=== PATIENT | female | born 2000 | race African-American/Black ===

== ENCOUNTER 2020-09-26 05:52 | Inpatient (IN) ==
[2020-09-26] MEDS ORDERED: SODIUM CHLORIDE 0.9% 500 ML IV STA (06:13)
[2020-09-26] MEDS ORDERED: ONDANSETRON INJ 2 MG/ML 2 ML VIAL IV STA (06:13)
[2020-09-26] MEDS ORDERED: KETOROLAC 30 MG/ML VIAL IV ONE (06:46)
[2020-09-26 06:54] LABS: Basophils # (auto) 0.03 K/uL (0-0.2); Basophils % (auto) 0.6 %; Eosinophils # (auto) 0.21 K/uL (0-0.5); Eosinophils % (auto) 3.9 %; Hematocrit (blood only) 36.2 % (37-47); Lymphocytes # (auto) 2.45 K/uL (1.2-3.4); Lymphocytes % (auto) 45.5 %; Mean Corpuscular Hemoglobin 26.5 pg (25-34); Mean Corpuscular Hgb Conc 33.1 g/dL (32-36); Mean Corpuscular Volume 79.9 fL (80-100); Mean Platelet Volume 8.8 fL (7.4-10.4); Monocytes % (auto) 11.2 %; Neutrophils # (auto) 2.09 K/uL (1.4-6.5); Neutrophils % (auto) 38.8 %; Platelet Count 334 K/uL (130-400); RDW Coefficient of Variation 14.7 % (11.5-14.5); RDW Standard Deviation 42.6 fL (36.4-46.3); Red Blood Count 4.53 M/uL (4.2-5.4); White Blood Count 5.38 K/uL (4.8-10.8)
[2020-09-26 07:13] LABS: Pregnancy Test, Serum Negative (Negative)
[2020-09-26 07:14] LABS: Albumin Level 3.8 gm/dl (3.4-5.0); BUN Creatinine Ratio 9.5 (10-20); Calcium 9.1 mg/dl (8.5-10.1); Creatinine Clr Calc Pharmacy 112.7 ml/min; Est GFR (African American) 104.5; Est GFR (Non-African American) 90.2
[2020-09-26 07:17] LABS: Bilirubin,Total 0.7 mg/dl (0.2-1); Globulin 3.9 gm/dl (2.5-4.0); Total Protein 7.7 gm/dl (6.4-8.2)
[2020-09-26] MEDS ORDERED: fentaNYL citrate 100 MCG/2 ML VIAL IV PRN (07:23)
[2020-09-26 07:25] LABS: Appearance Urine Cloudy (Clear); Bacteria Urine Automated Negative (Negative); Bilirubin Urine Negative (Negative); Blood Urine 3+ (Negative); Color Urine Dark Yellow; Epithelial Cell Urine Auto >30 /lpf (0-5); Glucose Urine UA Negative (Negative); Ketones Urine Negative (Negative); Leukocyte Esterase Urine Trace (Negative); Nitrite Urine Negative (Negative); Protein Urine 1+ (Negative); RBC Urine Automated >30 /hpf (0-4); Specific Gravity Urine 1.031 (1.000-1.030); Urobilinogen Urine Negative (Negative)
[2020-09-26] MEDS ORDERED: IOVERSOL 100ml IV ONE (08:03)
--- NOTE | 2020-09-26 08:42 | Ultrasound Report ---
BILIARY ULTRASOUND CLINICAL HISTORY: RUQ abdominal pain COMPARISON STUDY: No previous studies for comparison. FINDINGS: The gallbladder is distended. The gallbladder contains sludge and tiny echogenic foci likely represen ting tiny calculi. There is no gallbladder wall thickening. There is no ductal dilatation. The common bile duct measures 5 mm. The liver appears sonographically unremarkable. The pancreas is largely obscured by bowel gas shadowing. The head and proximal body the pancreas appe ar normal. There is no right-sided hydronephrosis. IMPRESSION: 1. Distended gallbladder containing sludge and tiny calculi. No gallbladder wall thickening. No peric holecystic fluid. 2. If there is clinical concern over the presence of acute cholecystitis, a nuclear medicine hepatic biliary study could be obtained in follow-up. ACT 112: Negative or not required by law. Electronically signed by: Antony Hall M.D. 09/26/2020 8:40 AM
--- NOTE | 2020-09-26 08:50 | CT Scan Report ---
CT OF THE ABDOMEN AND PELVIS WITH CONTRAST CLINICAL HISTORY: RLQ abd pain COMPARISON STUDY: Right upper quadrant ultrasound performed earlier today. TECHNIQUE: Following IV administration of 94 mL of Optiray-320, axial images of the abdomen and pelvi s were obtained from the lung bases to the proximal femurs. Images were reviewed in the axial, sagitt al, and coronal planes. IV contrast was administered without complication. Automated exposure contro l was utilized for the study. A dose lowering technique was utilized adhering to the principles of A HOLLIS. CT DOSE: 467.78 mGy.cm FINDINGS: Lung bases are unremarkable. No pneumatosis, free air or portal venous gas is present. Ther e is periportal edema. There is no biliary or pancreatic ductal dilatation. The spleen, adrenal gland s, kidneys and pancreas are normal. There is no peripancreatic infiltration. There is trace perichole cystic fluid. The gallbladder is mildly distended. The gallbladder fundus distorts the anterior abdom inal wall. There is a peripherally calcified 9 mm focus within the claude hepatis shown on axial image 98. This could reflect a stone within the cystic duct. There is no pericholecystic infiltration. The appendix is normal. The caliber and wall thickness of small and large bowel are normal. There is a m oderate amount of stool. Major vasculature is patent. The ovaries are not enlarged. There is no ascit es. There is no abscess. No urinary calculi identified although sensitivity is diminished given excre harish contrast within the collecting systems. IMPRESSION: 1. Mild gallbladder distention. Gallbladder fundus distorts the anterior abdominal wall. Trace perich olecystic fluid. Possible 9 mm stone within the cystic duct. These findings raise the possibility of acute cholecystitis. A nuclear medicine hepatobiliary scan could be obtained. 2. Normal appendix. No bowel obstruction. 3. Moderate amount of stool. 4. Periportal edema which may be related to IV hydration. ACT 112: Negative or not required by law. Electronically signed by: Ryan Nickerson M.D. 09/26/2020 8:49 AM
--- NOTE | 2020-09-26 09:08 | Emergency Department Note ---
History of Present Illness General Chief Complaint: Abdominal Pain Stated Complaint: SEVERE ABDOMINAL PAIN Time Seen by Provider: 09/26/20 06:40 Source: patient Mode of arrival: ambulatory Limitations: no limitations History of Present Illness Provider Complaint: abdominal pain Maximum Pain Intensity: 10 This is a 20-year-old female who presents to the ED with a chief complaint of epigastric abdominal pain and right upper quadrant and right-sided abdominal pain. The patient states that her symptoms started around 3 AM this morning. She reports associated nausea. Denies vomiting or diarrhea. She states that she had pizza yesterday evening. She has had some similar episodes off and on in the past. She states that she was recently at [facility] and they told her she had a stomach tear. She was there for the same reason. She has no other complaints at this time. Denies possibility of . Home Medications Home Medications Medication Instructions Recorded Confirmed Type Oral Contraceptive 1 tab PO DAILY 09/26/20 09/26/20 History Allergies Allergy/AdvReac Type Severity Reaction Status Date / Time No Known Allergies Allergy Unverified 09/26/20 06:21 Past Med/Surg History Social History Smoking Status: Never smoker Preferred Language: Kosovan Feels Safe at Home: Yes Review of Systems A total of 10 systems reviewed and were otherwise negative Physical Exam Vital Signs: Vital Signs - 24 hr 09/26/20 05:56 09/26/20 07:35 Temperature 37.0 C Temperature Source Oral Pulse Rate 100 H Pulse Rate [Finger ] 77 Respiratory Rate 20 18 Respiratory Effort / Characteristics Non-Labored Sponta neous Non-Labored Sponta neous Respiratory Depth Normal Normal Respiratory Patter n Regular Regular Blood Pressure 116/69 Blood Pressure [Ri ght Arm] 130/79 Blood Pressure Anisha n 84 Blood Pressure Anisha n [Right Arm] 96 Blood Pressure Pos ition Sitting Pulse Oximetry 100 100 Oxygen Delivery Me thod Room Air Room Air Sepsis Recent Feve r Within 48 Hours No Sepsis New/Unexpla ined Change in Men randy Status No Sepsis Action Take n by Nursing No Action Required Physical Exam: CONSTITUTIONAL/VITAL SIGNS: Reviewed / noted above. GENERAL: Non-toxic in appearance. INTEGUMENTARY: Warm, dry, and [place]. HEAD: Normocephalic. EYES: without scleral icterus or trauma. ENT/OROPHARYNX: clear and moist. LYMPHADENOPATHY/NECK: Is supple without lymphadenopathy or meningismus. RESPIRATORY: Lungs clear and equal. CARDIOVASCULAR: Regular rate and rhythm. GI/ABDOMEN: Soft and diffusely tender in the right side. No organomegaly or pulsatile mass. No rebound or guarding. Normal bowel sounds. EXTREMITIES: Warm and well perfused. BACK: No CVA tenderness. NEUROLOGICAL: Intact without focal deficits. PSYCHIATRIC: normal affect. MUSCULOSKELETAL: Normally developed with good muscle tone. TRIAGE NURSING DOCUMENTATION REVIEWED. Course Administered Medications Fentanyl Citrate (Fentanyl Citrate 100 Mcg/2 Ml Vial) 50 mcg IV Q15M PRN PRN Reason: Pain Stop: 10/10/20 07:22 Last Admin: 09/26/20 07:33 Dose: 50 mcg Documented by: [id number] Discontinued Medications Sodium Chloride (Nss) 500 mls @ 999 mls/hr IV .Q31M STA Stop: 09/26/20 06:43 Last Infusion: 09/26/20 07:16 Dose: 0 mls/hr Documented by: [id number] Admin: 09/26/20 06:40 Dose: 999 mls/hr Documented by: [id number] Ioversol (Ioversol 100ml) 94 ml IV ONCE ONE Stop: 09/26/20 08:04 Last Admin: 09/26/20 08:03 Dose: 94 ml Documented by: [id number] Ketorolac Tromethamine (Ketorolac 30 Mg/Ml Vial) 30 mg IV NOW ONE Stop: 09/26/20 06:47 Last Admin: 09/26/20 07:09 Dose: 30 mg Documented by: [id number] Ondansetron HCl (Ondansetron Inj 2 Mg/Ml 2 Ml Vial) 4 mg IV NOW STA Stop: 09/26/20 06:14 Last Admin: 09/26/20 06:39 Dose: 4 mg Documented by: [id number] Medical Decision Making Differential Diagnosis Differential considered: pancreatitis, hepatitis, acute cholecystitis, AAA, UTI, pyelonephritis, kidney stones, appendicitis, diverticulitis, shingles, bowel obstruction, mesenteric ischemia, intussusception,hernia, testicular torsion, ovarian torsion, ruptured ovarian cyst,ectopic , . Medical Records Attestation: I reviewed the patient's medical records. Home Medications Current Medication List: was personally reviewed by me Laboratory Data Attestation: I reviewed the patient's lab results. Result diagrams: 09/26/20 06:35 09/26/20 06:35 Lab Results 09/26/20 09/26/20 09/26/20 Range/Units 06:35 06:35 06:35 WBC 5.38 (4.8-10.8) K/uL RBC 4.53 (4.2-5.4) M/uL Hgb 12.0 (12.0-16.0) g/dL Hct 36.2 L (37-47) % MCV 79.9 L (80-100) fL MCH 26.5 (25-34) pg MCHC 33.1 (32-36) g/dL RDW Std Deviation 42.6 (36.4-46.3) fL RDW Coeff of Chuck 14.7 H (11.5-14.5) % Plt Count 334 (130-400) K/uL MPV 8.8 (7.4-10.4) fL Immature Gran % (Auto) 0.0 % Neut % (Auto) 38.8 % Lymph % (Auto) 45.5 % [place] % (Auto) 11.2 % Eos % (Auto) 3.9 % Baso % (Auto) 0.6 % Neut # (Auto) 2.09 (1.4-6.5) K/uL Lymph # (Auto) 2.45 (1.2-3.4) K/uL [place] # (Auto) 0.60 H (0.11-0.59) K/uL Eos # (Auto) 0.21 (0-0.5) K/uL Baso # (Auto) 0.03 (0-0.2) K/uL Immature Gran # (Auto) 0.00 (0.00-0.02) K/uL Sodium 139 (136-145) mmol/L Potassium 4.0 (3.5-5.1) mmol/L Chloride 109 H (98-107) mmol/L Carbon Dioxide 24 (21-32) mmol/L Anion Gap 7.0 (3-11) BUN 9 (7-18) mg/dl Creatinine 0.91 (0.6-1.2) mg/dl Est Cr Clr Drug Dosing 112.7 ml/min Est GFR ( Amer) 104.5 Est GFR (Non-Af Amer) 90.2 BUN/Creatinine Ratio 9.5 L (10-20) Glucose 99 (70-99) mg/dl Calcium 9.1 (8.5-10.1) mg/dl Total Bilirubin 0.7 (0.2-1) mg/dl AST 14 L (15-37) U/L ALT 16 (12-78) U/L Alkaline Phosphatase 84 (45-117) U/L Total Protein 7.7 (6.4-8.2) gm/dl Albumin 3.8 (3.4-5.0) gm/dl Globulin 3.9 (2.5-4.0) gm/dl Albumin/Globulin Ratio 1.0 (0.9-2) Lipase 121 (73-393) U/L HCG, Qual Negative (Negative) Urine Color Urine Appearance (Clear) Urine pH (4.5-7.5) Ur Specific [place] (1.000-1.030) Urine Protein (Negative) Urine Glucose (UA) (Negative) Urine Ketones (Negative) Urine Blood (Negative) Urine Nitrite (Negative) Urine Bilirubin (Negative) Urine Urobilinogen (Negative) Ur Leukocyte Esterase (Negative) Urine WBC (Auto) (0-5) /hpf Urine RBC (Auto) (0-4) /hpf U Hyaline Cast (Auto) (0-5) /lpf U Epithel Cells (Auto) (0-5) /lpf Urine Bacteria (Auto) (Negative) 09/26/20 Range/Units 07:10 WBC (4.8-10.8) K/uL RBC (4.2-5.4) M/uL Hgb (12.0-16.0) g/dL Hct (37-47) % MCV (80-100) fL MCH (25-34) pg MCHC (32-36) g/dL RDW Std Deviation (36.4-46.3) fL RDW Coeff of Chuck (11.5-14.5) % Plt Count (130-400) K/uL MPV (7.4-10.4) fL Immature Gran % (Auto) % Neut % (Auto) % Lymph % (Auto) % [place] % (Auto) % Eos % (Auto) % Baso % (Auto) % Neut # (Auto) (1.4-6.5) K/uL Lymph # (Auto) (1.2-3.4) K/uL [place] # (Auto) (0.11-0.59) K/uL Eos # (Auto) (0-0.5) K/uL Baso # (Auto) (0-0.2) K/uL Immature Gran # (Auto) (0.00-0.02) K/uL Sodium (136-145) mmol/L Potassium (3.5-5.1) mmol/L Chloride (98-107) mmol/L Carbon Dioxide (21-32) mmol/L Anion Gap (3-11) BUN (7-18) mg/dl Creatinine (0.6-1.2) mg/dl Est Cr Clr Drug Dosing ml/min Est GFR ( Amer) Est GFR (Non-Af Amer) BUN/Creatinine Ratio (10-20) Glucose (70-99) mg/dl Calcium (8.5-10.1) mg/dl Total Bilirubin (0.2-1) mg/dl AST (15-37) U/L ALT (12-78) U/L Alkaline Phosphatase (45-117) U/L Total Protein (6.4-8.2) gm/dl Albumin (3.4-5.0) gm/dl Globulin (2.5-4.0) gm/dl Albumin/Globulin Ratio (0.9-2) Lipase (73-393) U/L HCG, Qual (Negative) Urine Color Dark Yellow Urine Appearance Cloudy A (Clear) Urine pH 5.0 (4.5-7.5) Ur Specific [place] 1.031 H (1.000-1.030) Urine Protein 1+ H (Negative) Urine Glucose (UA) Negative (Negative) Urine Ketones Negative (Negative) Urine Blood 3+ H (Negative) Urine Nitrite Negative (Negative) Urine Bilirubin Negative (Negative) Urine Urobilinogen Negative (Negative) Ur Leukocyte Esterase Trace H (Negative) Urine WBC (Auto) 5-10 H (0-5) /hpf Urine RBC (Auto) >30 H (0-4) /hpf U Hyaline Cast (Auto) 5-10 H (0-5) /lpf U Epithel Cells (Auto) >30 H (0-5) /lpf Urine Bacteria (Auto) Negative (Negative) Imaging Data Radiologist's Impression: BILIARY ULTRASOUND CLINICAL HISTORY: RUQ abdominal pain COMPARISON STUDY: No previous studies for comparison. FINDINGS: The gallbladder is distended. The gallbladder contains sludge and tiny echogenic foci likely representing tiny calculi. There is no gallbladder wall thickening. There is no ductal dilatation. The common bile duct measures 5 mm. The liver appears sonographically unremarkable. The pancreas is largely obscured by bowel gas shadowing. The head and proximal body the pancreas appear normal. There is no right-sided hydronephrosis. IMPRESSION: 1. Distended gallbladder containing sludge and tiny calculi. No gallbladder wall thickening. No pericholecystic fluid. 2. If there is clinical concern over the presence of acute cholecystitis, a nuclear medicine hepatic biliary study could be obtained in follow-up. CT ABD/PELVIS IMPRESSION: 1. Mild gallbladder distention. Gallbladder fundus distorts the anterior abdominal wall. Trace pericholecystic fluid. Possible 9 mm stone within the cystic duct. These findings raise the possibility of acute cholecystitis. A nuclear medicine hepatobiliary scan could be obtained. 2. Normal appendix. No bowel obstruction. 3. Moderate amount of stool. 4. Periportal edema which may be related to IV hydration. MDM Narrative This is a 20-year-old female who presents to the ED with a chief complaint of right-sided abdominal pain. Details listed above. The patient CBC and chemistry panel was unremarkable. Her urinalysis was unremarkable and her test was negative. Her ultrasound and CT scan of the abdomen pelvis suggest gallbladder stones with sludge. Her symptoms could be related to biliary colic. A HIDA scan was recommended and follow-up. The patient will be observed in the hospital for further evaluation and care of her symptoms. She did receive IV fluids, IV Zofran and IV fentanyl as well as IV Toradol for her symptoms. She did have improvement of her symptoms during her stay. Impression & Plan Biliary colic Discharge Plan Visit Data Chief Complaint: Abdominal Pain Stated Complaint: SEVERE ABDOMINAL PAIN ED Provider: Danish Borja ED Midlevel Provider: Judie Aguilar Discharge Problem: Biliary colic Patient Disposition: Being Evaluated by Hospitalist Forms Stand Alone Forms: [employer] Prescriptions Prescriptions: No Action Oral Contraceptive 1 tab PO DAILY RF: 0 Referrals Referrals: PCP,NO [Primary Care Provider] -
--- NOTE | 2020-09-26 09:14 | Emergency Department Note ---
General (ED) Blank Date of Service September 26, 2020 ED Visit Note I personally saw, interviewed, and examined the patient. Patient's case was discussed with Dr. Borja, ED attending, and I assisted with MDM. Please see attending documentation for full details. Resident Activity Tracking Resident Involvement: Resident Care Provided Care Provided: Pediatric Care ED
[2020-09-26] MEDS ORDERED: ONDANSETRON INJ 2 MG/ML 2 ML VIAL IV PRN (13:23)
--- NOTE | 2020-09-26 13:48 | History & Physical Report ---
Date of Service September 26, 2020 Assessment & Plan (1) Biliary colic: CT and RUQ u/s both show distended gallbladder containing sludge and tiny calculi. Exam consistent with cholecystitis. - Pain control - HIDA scan ordered - General surgery consulted - Patient would like to speak with surgery, but wasn't sure if she would want surgery here or wait and have it closer to home. - Defer abx at this point given no leukocytosis, no fevers, no sign of active infection. (2) Depression: No present symptoms of concern. - Continue home bupropion, lamotrigine, and risperidone (3) DVT prophylaxis: SCDs - Low DVT risk per admission calculator Admission and Anticipated Discharge Date Admission Date: September 26, 2020 History of Present Illness Primary Care Provider: NO PCP 20yo F w/ hx of depression who presents with gallbladder pain. She reports she has had the pain for about 3 years. Initially, it was quite mild and only occurred every other month or so, but over the years has gradually worsened and is now happening twice a week. She reports the pain as a sharp pain in the epigastric region with radiation to the RUQ. It will occur and be constant and last for hours, then fade away. She had an EGD at [facility] recently which found some gastritis for which she was put on famotidine. At 3am this morning, she was woken up by 10/10 pain in the epigastric area again. It was accompanied by nausea, faintness, dizziness. She denies any diarrhea, fevers/chills/sweats, shortness of breath, chest pain, weakness, or any urinary symptoms. She reports the pain was 10/10 and constant until she received fentanyl in the ED. Allergies Allergy/AdvReac Type Severity Reaction Status Date / Time No Known Allergies Allergy Unverified 09/26/20 06:21 Home Medications Home Medications Medication Instructions Recorded Confirmed Type bupropion HCl 100 mg PO DAILY 09/26/20 09/26/20 History cyanocobalamin (vitamin B-12) 250 mcg PO DAILY 09/26/20 09/26/20 History [Vitamin B-12] ergocalciferol (vitamin D2) 50,000 unit PO WK 09/26/20 09/26/20 History [Vitamin D2] estradiol 1 mg PO DAILY 09/26/20 09/26/20 History famotidine 20 mg PO BID 09/26/20 09/26/20 History lamotrigine 200 mg PO DAILY 09/26/20 09/26/20 History risperidone 0.5 mg PO HS 09/26/20 09/26/20 History Past Med/Surg History Medical History (Updated 09/26/20 @ 13:45 by Brent Chacon MD) Depression Surgical History (Updated 09/26/20 @ 13:45 by Brent Chacon MD) History of esophagogastroduodenoscopy (EGD) ~07/2020 - Only showed gastritis Family History (Updated 09/26/20 @ 13:44 by Brent Chacon MD) Father Diabetes Aunt Diabetes Mother Hypertension Social History (Updated 09/26/20 @ 13:44 by Brent Chacon MD) Smoking Status: Never smoker Hx Alcohol Use: Yes Alcohol Intake Frequency: Monthly or Less Preferred Language: Korean Feels Safe at Home: Yes Review of Systems Review of Systems: All systems reviewed & are unremarkable except as noted in HPI & below Physical Exam Constitutional: WD/WN, vitals as above Eyes: EOM intact bilaterally; no conjunctival abnormality ENMT: external ear and nose normal, oropharynx normal Neck: trachea midline, no thyromegaly normal visual inspection Respiratory: normal respiratory effort, lungs clear to auscultation no respiratory distress Cardiovascular: RRR, no murmur, no edema Gastrointestinal (Abdomen): Inspection/Auscultation: abdomen normal to inspection and + hypoactive bowel sounds; abdomen not distended Percussion/Palpation: + abdomen tender (RUQ & epigastric region) and abdomen soft; no guarding and abdomen not rigid Musculoskeletal: no cyanosis or clubbing, extremities motor strength 5/5 Skin: no rashes, warm and dry Neurologic: moves all extremities and awake Psychiatric: Orientation: alert, oriented to person and cooperative Results & Data Results & Data ([facility]) Vital Signs (Past 12 Hours) Vital Signs Temp Pulse Pulse Resp BP BP Pulse Ox 09/26/20 12:00 73 16 111/72 99 09/26/20 09:58 80 18 107/58 L 99 09/26/20 07:35 77 18 130/79 100 09/26/20 05:56 37.0 C 100 H 20 116/69 100 Code Status & VTE Plan VTE Prophylaxis Plan VTE Prophylaxis will be ordered: Yes PG Care Time/CCT Total # of Minutes Spent Total Time Spent with Patient: Total time spent is greater than 50% in coordination of care (as documented) at patient's floor/unit and/or counseling patient: Coding Level of Care Code 52421 Initial Inpt Care Lvl 3 Diagnoses Biliary colic K80.50 Depression F32.9 DVT prophylaxis Z29.9
[2020-09-26] MEDS ORDERED: MoRPHine SULFATE 2 MG/ML CARP ONE (16:32)
--- NOTE | 2020-09-26 17:35 | Nuclear Medicine Report ---
NUCLEAR MEDICINE HEPATOBILIARY SCAN HISTORY: Abnormal CT Quadrant pain. Acute cholecystitis COMPARISON: Abdomen and pelvis CT 09/26/2020. TECHNIQUE: Immediately following the intravenous administration of 5.2 mCi Tc-99m Choletec, dynamic a nterior abdominal imaging was performed. 2 mg of morphine was also administered. FINDINGS: Uniform hepatic tracer accumulation is shown. Prompt intrahepatic biliary excretion is seen. The comm on bile duct and small bowel are visualized at 15 minutes. The gallbladder is not visualized during t he initial 60 minutes. Therefore, 2 mg of morphine was administered an additional 30 minutes of imagi ng was obtained. The gallbladder was not visualized on the additional 30 minutes. Therefore, these fi ndings are consistent with cystic duct obstruction/acute cholecystitis. IMPRESSION: Above findings consistent with acute cholecystitis/cystic duct obstruction. ACT 112: Negative or not required by law. Electronically signed by: Addy Dietrich M.D. 09/26/2020 5:34 PM
--- NOTE | 2020-09-26 19:27 | Consultation ---
Date of Consultation September 26, 2020 Assessment & Plan (1) Acute cholecystitis due to biliary calculus: pt is a 20 year-old female who was admitted to hospital with acute RUQ pain, IMP: acute cholecystitis, cholelithiasis, plan, I recommend to do laparoscopic cholecystectomy possible open or cholangiogram tomorrow, D/W benefits, risks and alternatives of the surgery, the risks - infection, bleeding, injury CBD, pt understood, she agrees with the surgery, I answered all questions, NPO after MN, Present on Admission?: Yes History of Present Illness History of Present Illness Primary Care Provider: NO PCP 20yo F w/ hx of depression who presents with gallbladder pain. She reports she has had the pain for about 3 years. Initially, it was quite mild and only occurred every other month or so, but over the years has gradually worsened and is now happening twice a week. She reports the pain as a sharp pain in the epigastric region with radiation to the RUQ. It will occur and be constant and last for hours, then fade away. She had an EGD at [facility] recently which found some gastritis for which she was put on famotidine. At 3am this morning, she was woken up by 10/10 pain in the epigastric area aga in. It was accompanied by nausea, faintness, dizziness. She denies any diarrhea, fevers/chills/sweats, shortness of breath, chest pain, weakness, or any urinary symptoms. She reports the pain was 10/10 and constant until she received fentanyl in the ED. I ( Beni Mariscal MD ) got a call for consult acute cholecystitis, I reviewed pt's H/P, labs, U/S, HIDA scan, with pt. pt is still have RUQ pain, Allergies Allergy/AdvReac Type Severity Reaction Status Date / Time No Known Allergies Allergy Unverified 09/26/20 06:21 Home Medications Home Medications Medication Instructions Recorded Confirmed Type bupropion HCl 100 mg PO DAILY 09/26/20 09/26/20 History cyanocobalamin (vitamin B-12) 250 mcg PO DAILY 09/26/20 09/26/20 History [Vitamin B-12] ergocalciferol (vitamin D2) 50,000 unit PO WK 09/26/20 09/26/20 History [Vitamin D2] estradiol 1 mg PO DAILY 09/26/20 09/26/20 History famotidine 20 mg PO BID 09/26/20 09/26/20 History lamotrigine 200 mg PO DAILY 09/26/20 09/26/20 History risperidone 0.5 mg PO HS 09/26/20 09/26/20 History Past Med/Surg History Medical History (Updated 09/26/20 @ 13:45 by Brent Chacon MD) Depression Surgical History (Updated 09/26/20 @ 13:45 by Brent Chacon MD) History of esophagogastroduodenoscopy (EGD) ~07/2020 - Only showed gastritis Family History (Updated 09/26/20 @ 13:44 by Brent Chacon MD) Father Diabetes Aunt Diabetes Mother Hypertension Social History (Updated 09/26/20 @ 13:44 by Brent Chacon MD) Smoking Status: Never smoker Hx Alcohol Use: Yes Alcohol Intake Frequency: Monthly or Less Preferred Language: Macedonian Feels Safe at Home: Yes Review of Systems Review of Systems: All systems reviewed & are unremarkable except as noted in HPI & below Attending Physician: Brent Chacon MD Allergies Allergy/AdvReac Type Severity Reaction Status Date / Time No Known Allergies Allergy Unverified 09/26/20 06:21 Home Medications Home Medications Medication Instructions Recorded Confirmed Type bupropion HCl 100 mg PO DAILY 09/26/20 09/26/20 History cyanocobalamin (vitamin B-12) 250 mcg PO DAILY 09/26/20 09/26/20 History [Vitamin B-12] ergocalciferol (vitamin D2) 50,000 unit PO WK 09/26/20 09/26/20 History [Vitamin D2] estradiol 1 mg PO DAILY 09/26/20 09/26/20 History famotidine 20 mg PO BID 09/26/20 09/26/20 History lamotrigine 200 mg PO DAILY 09/26/20 09/26/20 History risperidone 0.5 mg PO HS 09/26/20 09/26/20 History Patient History Medical History (Updated 09/26/20 @ 19:29 by Beni Mariscal MD) Depression Surgical History (Updated 09/26/20 @ 13:45 by Brent Chacon MD) History of esophagogastroduodenoscopy (EGD) ~07/2020 - Only showed gastritis Family History (Updated 09/26/20 @ 13:44 by Brent Chacon MD) Father Diabetes Aunt Diabetes Mother Hypertension Social History (Updated 09/26/20 @ 13:44 by Brent Chacon MD) Smoking Status: Never smoker Second Hand Exposure: No; Do You Dip or Chew Tobacco: No; Hx Alcohol Use: Yes Alcohol type: wine Alcohol Intake Frequency: Monthly or Less Hx Substance Use: No Preferred Language: Macedonian Communication Ability: Effective Emery Wheel Worker Required: No Beliefs That Will Affect Care: None Current Living Situation: Other Current Living Situation Comment: lives in an apartment with a roommate Other Information That Helps Us Care for You: No Feels Safe at Home: Yes Assistive Devices: None Review of Systems Review of Systems: All systems reviewed & are unremarkable except as noted in HPI & below Constitutional: as per Subjective / HPI Eyes: as per Subjective / HPI Ear, Nose, Mouth, Throat: as per Subjective / HPI Respiratory: as per Subjective / HPI Cardiovascular: as per Subjective / HPI Gastrointestinal: as per Subjective / HPI Genitourinary: as per Subjective / HPI Musculoskeletal: as per Subjective / HPI Integumentary: as per Subjective / HPI Neurologic: as per Subjective / HPI Psychiatric: as per Subjective / HPI depression Physical Exam Constitutional: WD/WN, vitals as above well developed and well nourished Eyes: PERRL, conjunctivae normal, anicteric sclerae ENMT: external ear and nose normal, oropharynx normal Neck: trachea midline, no thyromegaly Respiratory: normal respiratory effort, lungs clear to auscultation Cardiovascular: RRR, no murmur, no edema Rate/Rhythm: regular rate and regular rhythm Gastrointestinal (Abdomen): Percussion/Palpation: + abdomen tender and abdomen soft tenderness at RUQ, no rebound pain, BS +, no distend Musculoskeletal: no cyanosis or clubbing, extremities motor strength 5/5 Skin: no rashes, warm and dry Neurologic: awake Psychiatric: Orientation: alert and oriented x 3 Results & Data ([facility]) Vital Signs (Past 12 Hours) Vital Signs Temp Pulse Pulse Resp BP BP Pulse Ox 09/26/20 15:21 37.1 C 82 18 126/73 100 09/26/20 13:00 37.1 C 71 18 111/68 99 09/26/20 12:00 73 16 111/72 99 09/26/20 09:58 80 18 107/58 L 99 09/26/20 07:35 77 18 130/79 100 Laboratory Results Abnormal lab results 09/26/20 09/26/20 09/26/20 Range/Units 06:35 06:35 07:10 Hct 36.2 L (37-47) % MCV 79.9 L (80-100) fL RDW Coeff of Chuck 14.7 H (11.5-14.5) % [place] # (Auto) 0.60 H (0.11-0.59) K/uL Chloride 109 H (98-107) mmol/L BUN/Creatinine Ratio 9.5 L (10-20) AST 14 L (15-37) U/L Urine Appearance Cloudy A (Clear) Ur Specific [place] 1.031 H (1.000-1.030) Urine Protein 1+ H (Negative) Urine Blood 3+ H (Negative) Ur Leukocyte Esterase Trace H (Negative) Urine WBC (Auto) 5-10 H (0-5) /hpf Urine RBC (Auto) >30 H (0-4) /hpf U Hyaline Cast (Auto) 5-10 H (0-5) /lpf U Epithel Cells (Auto) >30 H (0-5) /lpf Diagnostic Findings NUCLEAR MEDICINE HEPATOBILIARY SCAN HISTORY: Abnormal CT Quadrant pain. Acute cholecystitis COMPARISON: Abdomen and pelvis CT 09/26/2020. TECHNIQUE: Immediately following the intravenous administration of 5.2 mCi Tc- 99m Choletec, dynamic anterior abdominal imaging was performed. 2 mg of morphine was also administered. FINDINGS: Uniform hepatic tracer accumulation is shown. Prompt intrahepatic biliary excretion is seen. The common bile duct and small bowel are visualized at 15 minutes. The gallbladder is not visualized during the initial 60 minutes. Th erefore, 2 mg of morphine was administered an additional 30 minutes of imaging was obtained. The gallbladder was not visualized on the additional 30 minutes. Therefore, these findings are consistent with cystic duct obstruction/acute cholecystitis. IMPRESSION: Above findings consistent with acute cholecystitis/cystic duct obstruction. BILIARY ULTRASOUND CLINICAL HISTORY: RUQ abdominal pain COMPARISON STUDY: No previous studies for comparison. FINDINGS: The gallbladder is distended. The gallbladder contains sludge and tiny echogenic foci likely representing tiny calculi. There is no gallbladder wall thickening. There is no ductal dilatation. The common bile duct measures 5 mm. The liver appears sonographically unremarkable. The pancreas is largely obscured by bowel gas shadowing. The head and proximal body the pancreas appear normal. There is no right-sided hydronephrosis. IMPRESSION: 1. Distended gallbladder containing sludge and tiny calculi. No gallbladder wall thickening. No pericholecystic fluid. 2. If there is clinical concern over the presence of acute cholecystitis, a nuclear medicine hepatic biliary study could be obtained in follow-up. CT OF THE ABDOMEN AND PELVIS WITH CONTRAST CLINICAL HISTORY: RLQ abd pain COMPARISON STUDY: Right upper quadrant ultrasound performed earlier today. TECHNIQUE: Following IV administration of 94 mL of Optiray-320, axial images of the abdomen and pelvis were obtained from the lung bases to the proximal femurs. Images were reviewed in the axial, sagittal, and coronal planes. IV contrast was administered without complication. Automated exposure control was utilized for the study. A dose lowering technique was utilized adhering to the principles of ALARA. CT DOSE: 467.78 mGy.cm FINDINGS: Lung bases are unremarkable. No pneumatosis, free air or portal venous gas is present. There is periportal edema. There is no biliary or pancreatic ductal dilatation. The spleen, adrenal glands, kidneys and pancreas are normal. There is no peripancreatic infiltration. There is trace pericholecystic fluid. The gallbladder is mildly distended. The gallbladder fundus distorts the anterior abdominal wall. There is a peripherally calcified 9 mm focus within the claude hepatis shown on axial image 98. This could reflect a stone within the cystic duct. There is no pericholecystic infiltration. The appendix is normal. The caliber and wall thickness of small and large bowel are normal. There is a moderate amount of stool. Major vasculature is patent. The ovaries are not enlarged. There is no ascites. There is no abscess. No urinary calculi identified although sensitivity is diminished given excreted contrast within the collecting systems. IMPRESSION: 1. Mild gallbladder distention. Gallbladder fundus distorts the anterior abdominal wall. Trace pericholecystic fluid. Possible 9 mm stone within the cystic duct. These findings raise the possibility of acute cholecystitis. A nuclear medicine hepatobiliary scan could be obtained. 2. Normal appendix. No bowel obstruction. 3. Moderate amount of stool. 4. Periportal edema which may be related to IV hydration.
[2020-09-26] MEDS: FAMOTIDINE 20 MG TAB PO SCH (21:19)
[2020-09-26] MEDS: risperiDONE 0.5 MG TABLET PO SCH (21:19)
[2020-09-27 07:50] LABS: Hematocrit (blood only) 35.1 % (37-47); Hemoglobin 11.4 g/dL (12.0-16.0); Mean Corpuscular Hemoglobin 26.1 pg (25-34); Mean Corpuscular Hgb Conc 32.5 g/dL (32-36); Mean Corpuscular Volume 80.3 fL (80-100); Mean Platelet Volume 8.9 fL (7.4-10.4); Platelet Count 311 K/uL (130-400); RDW Coefficient of Variation 14.8 % (11.5-14.5); RDW Standard Deviation 43.5 fL (36.4-46.3); Red Blood Count 4.37 M/uL (4.2-5.4); White Blood Count 3.63 K/uL (4.8-10.8)
[2020-09-27 08:09] LABS: Pregnancy Test, Serum Negative (Negative)
[2020-09-27 08:23] LABS: Albumin Level 3.2 gm/dl (3.4-5.0); BUN Creatinine Ratio 6.4 (10-20); Calcium 8.5 mg/dl (8.5-10.1); Est GFR (African American) 105.9; Est GFR (Non-African American) 91.4; Magnesium 2.3 mg/dl (1.8-2.4); Potassium 3.7 mmol/L (3.5-5.1)
[2020-09-27 08:26] LABS: Albumin Globulin Ratio 0.9 (0.9-2); Bilirubin,Total 0.4 mg/dl (0.2-1); Globulin 3.5 gm/dl (2.5-4.0); Total Protein 6.7 gm/dl (6.4-8.2)
[2020-09-27] MEDS: LACTATED RINGER'S 1,000 ML IV SCH ×2 (08:53→23:39)
[2020-09-27] MEDS ORDERED: ePHEDrine sulfate 50 MG/ML AMP IV PRN (11:03)
[2020-09-27] MEDS ORDERED: LABETALOL HCL IV 5 MG/ML 20ML IV PRN (11:03)
[2020-09-27] MEDS ORDERED: HYDROmorphone INJ 1 MG/ML SYRINGE IV PRN (11:03)
[2020-09-27] MEDS ORDERED: ONDANSETRON INJ 2 MG/ML 2 ML VIAL IV PRN (11:03)
[2020-09-27] MEDS ORDERED: PHENYLEPHRINE 100MCG/ML 5ML SYR IV PRN (11:03)
[2020-09-27] MEDS ORDERED: MEPERIDINE HCL 25 MG/ML CARP/VIAL IV PRN (11:03)
[2020-09-27] MEDS ORDERED: ATROPINE SULFATE 0.1 MG/ML 10ML SYR IV PRN (11:03)
[2020-09-27] MEDS ORDERED: NEOSTIGMINE METHYLSULFATE 5 MG/5 ML SYR ONE (11:09)
[2020-09-27] MEDS ORDERED: LIDOCAINE HCL 2% 2 ML VIAL/AMP(20MG/ML) INFIL ONE (11:09)
[2020-09-27] MEDS ORDERED: DEXAMETHASONE SOD INJ 4 MG/ML VIAL ONE (11:09)
[2020-09-27] MEDS ORDERED: ROCURONIUM BROMIDE 10 MG/ML 5 ML VIAL IV ONE (11:09)
[2020-09-27] MEDS ORDERED: MIDAZOLAM HCL 1 MG/ML 2ML VIAL ONE (11:09)
[2020-09-27] MEDS ORDERED: PROPOFOL IV EMULSION 10 MG/ML 20 ML VIAL IV ONE (11:09)
[2020-09-27] MEDS ORDERED: ONDANSETRON INJ 2 MG/ML 2 ML VIAL ONE (11:09)
[2020-09-27] MEDS ORDERED: fentaNYL citrate 100 MCG/2 ML VIAL ONE ×2 (11:09→13:49)
[2020-09-27] MEDS ORDERED: GLYCOPYRROLATE 0.2 MG/ML VIAL ONE (11:09)
--- NOTE | 2020-09-27 13:01 | History & Physical Bridge Note ---
Date of Service September 27, 2020 History & Physical Bridge Note I have examined the patient, reviewed the History & Physical and in the interval since the performance of the History & Physical I have noted the following changes of clinical significance: no changes noted
[2020-09-27] MEDS ORDERED: ceFAZolin 2000MG 2,000 MG/15 ML SYR IV ONE (13:02)
[2020-09-27] MEDS ORDERED: ceFAZolin 2,000 MG/15 ML IV PUSH IV ONE (13:03)
[2020-09-27] MEDS ORDERED: LIDOCAINE HCL 1% 20 ML VIAL ONE (13:15)
[2020-09-27] MEDS ORDERED: BUPIVACAINE 0.5 % 5 MG/1 ML MPF 30ML VIAL ONE (13:15)
[2020-09-27] MEDS ORDERED: BACITRACIN OINT 15 GM TUBE ONE (13:15)
--- NOTE | 2020-09-27 13:17 | Anesthesiology Consultation ---
Date of Service September 27, 2020 Covid 19 negative on 09/27/20. Assessment & Plan (1) Encounter for pre-operative examination: Chart Review Chart Review: Acceptable Risk for Surgery and Patient NOT seen in Pre Admission Testing Consults Requested none History Surgery Operation Date: 09/27/20 09:30 Proposed Procedures p Laparoscopic Cholecystectomy - Beni Mariscal MD Height/Weight Height: 5 ft 8 in Weight: 82 kg Allergies Allergy/AdvReac Type Severity Reaction Status Date / Time No Known Allergies Allergy Unverified 09/26/20 06:21 Medications Home Medications Medication Instructions Recorded Confirmed Last Taken bupropion HCl 100 mg PO DAILY 09/26/20 09/26/20 Unknown cyanocobalamin (vitamin B-12) 250 mcg PO DAILY 09/26/20 09/26/20 Unknown [Vitamin B-12] ergocalciferol (vitamin D2) 50,000 unit PO WK 09/26/20 09/26/20 Unknown [Vitamin D2] estradiol 1 mg PO DAILY 09/26/20 09/26/20 Unknown famotidine 20 mg PO BID 09/26/20 09/26/20 Unknown lamotrigine 200 mg PO DAILY 09/26/20 09/26/20 Unknown risperidone 0.5 mg PO HS 09/26/20 09/26/20 Unknown Active Medications Generic Name Dose Route Start Last Admin Trade Name Mary Carmen PRN Reason Stop Dose Admin Famotidine 20 mg 09/26/20 21:00 09/26/20 21:19 Famotidine 20 Mg Tab PO 10/26/20 20:59 20 mg BID TOSHIA Administration Lactated Ringer's 1,000 mls @ 100 mls/hr 09/27/20 08:30 09/27/20 08:53 Lr IV 10/27/20 08:29 100 mls/hr .Q10H TOSHIA Administration Risperidone 0.5 mg 09/26/20 21:00 09/26/20 21:19 Risperidone 0.5 Mg Tablet PO 10/26/20 20:59 0.5 mg HS TOSHIA Administration NPO Date Last Intake of Fluids: 09/26/20 Time Last Intake of Fluids: 21:00 Last Intake of Fluids Comment: clear liquids Date Last Intake of Solids: 09/25/20 Time Last Intake of Solids: 22:30 Last Intake of Solids Comment: a slice of pizza Past Medical History Medical History Depression Past Family History Family History Father Diabetes Aunt Diabetes Mother Hypertension Past Surgical History Surgical History History of esophagogastroduodenoscopy (EGD) ~07/2020 - Only showed gastritis Social History Smoking Status: Never smoker Do You Dip or Chew Tobacco: No Hx Alcohol Use: Yes Alcohol type: wine alcohol intake frequency: other Alcohol Intake Frequency Comment: once a month Hx Substance Use: No Physical Exam Vital Signs Last Vital Signs Temp 36.8 C 09/27/20 12:30 Pulse 76 09/27/20 12:30 Resp 18 09/27/20 12:30 BP 116/79 09/27/20 12:30 Pulse Ox 99 09/27/20 12:30 Testing Laboratory Results 09/27/20 07:15 09/27/20 07:15 Urine Color Dark Yellow 09/26/20 07:10 Urine Appearance Cloudy (Clear) A 09/26/20 07:10 Urine pH 5.0 (4.5-7.5) 09/26/20 07:10 Ur Specific [place] 1.031 (1.000-1.030) H 09/26/20 07:10 Urine Protein 1+ (Negative) H 09/26/20 07:10 Urine Glucose (UA) Negative (Negative) 09/26/20 07:10 Urine Ketones Negative (Negative) 09/26/20 07:10 Urine Nitrite Negative (Negative) 09/26/20 07:10 Ur Leukocyte Esterase Trace (Negative) H 09/26/20 07:10 Urine WBC (Auto) 5-10 /hpf (0-5) H 09/26/20 07:10 Urine RBC (Auto) >30 /hpf (0-4) H 09/26/20 07:10 U Hyaline Cast (Auto) 5-10 /lpf (0-5) H 09/26/20 07:10 U Epithel Cells (Auto) >30 /lpf (0-5) H 09/26/20 07:10 Urine Bacteria (Auto) Negative (Negative) 09/26/20 07:10
--- NOTE | 2020-09-27 15:03 | Post Operative Brief Note ---
Immediate Post Op Note v1 Date of Surgery September 27, 2020 Pre & Post Diagnosis Operation Date: 09/27/20 09:30 Pre-Op Diagnosis: ACUTE CHOLECYSTITIS Post-Op Diagnosis: ACUTE CHOLECYSTITIS I identified the patient and participated in the time-out.: Yes Procedure Operation Date: 09/27/20 09:30 Actual Procedures p Laparoscopic Cholecystectomy(Not Applicable) - Beni Mariscal MD Surgeon Beni Mariscal MD Dietetics Director NUTRITION THERAPIST Estimated Blood Loss 10 Findings Consistent with Post-Op Diagnosis Fluids 300ML Specimens GALLBLADDER Anesthesia Type General Complications none Disposition Accompanied Patient To Recovery: Yes Disposition: Recovery Room Overlapping Procedure I was immediately available: during the entire case.
[2020-09-27] MEDS: fentaNYL citrate 100 MCG/2 ML VIAL IV PRN ×4 (15:20→15:35)
--- NOTE | 2020-09-27 15:29 | Operative Report (OR) ---
DATE OF OPERATION: 09/27/2020 PREOPERATIVE DIAGNOSES: Acute cholecystitis, cholelithiasis. POSTOPERATIVE DIAGNOSES: Acute cholecystitis, cholelithiasis. OPERATIVE PROCEDURE: Laparoscopic cholecystectomy. SURGEON: Beni Mariscal MD. ANESTHESIA: General. ESTIMATED BLOOD LOSS: About 10 mL. FINDINGS: Acute cholecystitis with cholelithiasis. COMPLICATIONS: None. INDICATIONS FOR THE PROCEDURE: This is a 20-year-old female who was admitted to the hospital for acute cholecystitis. I recommended to do the laparoscopic cholecystectomy, possible open, possible cholangiogram. I did talk to the patient about the benefit, the risk, alternate procedure. I indicated the risks may include but not limited to such as bleeding, infection, injury to common bile duct, may need ERCP. The patient understands. She signed informed consent and I answered all questions. DETAILS OF PROCEDURE: We brought the patient to the OR, put the patient in the supine position. The patient received SCD on bilateral legs to prevent DVT. Also, patient received 2 grams of Ancef IV for prophylactic antibiotic. The patient received general anesthesia without difficulties. Abdomen was prepped and draped in routine sterile fashion. After timeout, I injected the local anesthesia by using 1% lidocaine mixed with 0.5% Marcaine just above the umbilicus. Then, I made a small incision just above the umbilicus, opened fascia and opened peritoneum under direct vision, put a Fabiano trocar in, connected to CO2 to create pneumoperitoneum, flow rate at 6 liters per minute, pressure not more than 14 mmHg. Once we got a nice pneumoperitoneum, we put the camera in, looked around the abdomen, it showed normal finding on the liver. However, the gallbladder showed acute cholecystitis, gallbladder wall thickening, and edema, confirmed the diagnosis of acute cholecystitis. Then, I put another three 5 mm trocars on the right upper quadrant area. Once all trocars in, we used the grasper to hold the base of gallbladder, put in the direction to the diaphragm, another grasper to hold the pouch of gallbladder, put a lateral to expose the triangle of Calot. Cystic duct was identified and mobilized. Then, I put two metal clips, 5 mm x2, on the proximal cystic duct, one on the distal cystic duct, and used a scissor for transection of cystic duct. Rechecked, no bile leak. The cystic artery was identified and mobilized. I put two 5 mm metal clips on the proximal cystic artery, one on the distal cystic artery and then used a scissor for transection of the cystic artery. Rechecked, no active bleeding. Then, we used the Bovie to take down gallbladder from the liver bed. Rechecked, no active bleeding, no bile leak. Then, we removed gallbladder through the catch bag. Then, we reinserted the Fabiano trocar in, connected to CO2 to create pneumoperitoneum, again looked around the abdomen, no active bleeding, no bile leak from the liver bed. Then we removed all trocars under direct vision. No active bleeding from the trocar sites. Pneumoperitoneum was released, now closed the umbilical incision, fascial layer by using 0 Vicryl [id number] x2, closed subcutaneous layer by using 2-0 Vicryl interruptedly, closed skin by using 4-0 Vicryl continuous running, closed another three 5 mm trocar site skin only by using 4-0 Vicryl. Then, we put the dressing on. The patient tolerated the procedure well. All instrument, needle and sponge count were correct x2 at the end of the case. The patient was transferred to recovery room in stable condition. The specimen was sent to pathology. After the procedure, I did talk to the patient about the OR finding and the procedure we did, she understands. I attest to the content of the Intraoperative Record and any orders documented therein. Any exception s are noted below.
--- NOTE | 2020-09-27 15:36 | Anesthesiology Progress Note ---
Date of Service September 27, 2020 Anesthesia Post Procedure Vital Signs Vital Signs: Temp Pulse Pulse Pulse Resp BP Pulse Ox 09/27/20 15:25 69 18 112/65 100 09/27/20 15:16 36.4 C L 84 18 116/62 100 09/27/20 12:30 36.8 C 76 18 116/79 99 09/27/20 08:35 37 C 74 18 106/62 99 09/27/20 04:20 36.8 C 97 H 16 116/77 100 09/26/20 23:33 36.9 C 76 18 109/67 100 09/26/20 19:20 37.1 C 74 18 116/68 99 Pain Intensity Abdomen: Pain Intensity: 6 Transfer of Care Handoff Completed per policy Notes Mental Status: alert / awake / arousable Patient Amnestic to Procedure: Yes Nausea / Vomiting: adequately controlled Pain: adequately controlled Airway Patency, RR, SpO2: stable & adequate BP & HR: stable & adequate Hydration State: stable & adequate Anesthetic Complications: no major complications apparent
[2020-09-27] MEDS: HYDROmorphone INJ 0.5 MG/0.5 ML SYR IV PRN ×3 (16:37→23:40)
[2020-09-27] MEDS: FAMOTIDINE 20 MG TAB PO SCH ×2 (17:29→20:12)
[2020-09-27] MEDS ORDERED: ERGOCALCIFEROL 50,000 UNITS 1250 MCG CAP PO SCH (18:00)
[2020-09-27] MEDS: estradioL 1 MG TAB PO SCH (18:18)
[2020-09-27] MEDS: buPROPion SR 100 MG TABCR PO SCH (18:19)
[2020-09-27] MEDS: lamoTRIgine 100 MG TAB PO SCH (18:20)
[2020-09-27] MEDS: CYANOCOBALAMIN 500 MCG TABLET (VITAMIN B-12) PO SCH (18:24)
[2020-09-27] MEDS: ceFAZolin 1000MG 1,000 MG/7.5 ML SYR IV SCH (20:06)
[2020-09-27] MEDS: risperiDONE 0.5 MG TABLET PO SCH (20:13)
--- NOTE | 2020-09-27 21:53 | Hospitalist Progress Note ---
Date of Service September 27, 2020 Assessment & Plan (1) Biliary colic: CT and RUQ u/s both show distended gallbladder containing sludge and tiny calculi. Exam consistent with cholecystitis. - Pain control - HIDA scan ordered - General surgery consulted -Patient is agreeable to surgery today. -This is scheduled for later in the day. - Defer abx at this point given no leukocytosis, no fevers, no sign of active infection. (2) Depression: No present symptoms of concern. - Continue home bupropion, lamotrigine, and risperidone (3) DVT prophylaxis: SCDs - Low DVT risk per admission calculator Admission and Anticipated Discharge Date Admission Date: September 26, 2020 Subjective Patient reports feeling well. She continues to have mild-moderate abdominal pain in her RUQ. She is anxiously awaiting the surgery. She denies any fever, chills, nausea, vomiting. Review of Systems Review of Systems: All systems reviewed & are unremarkable except as noted in HPI & below Physical Exam Physical Exam: Constitutional: WD/WN, vitals as above Eyes: EOM intact bilaterally; no conjunctival abnormality ENMT: external ear and nose normal, oropharynx normal Neck: trachea midline, no thyromegaly normal visual inspection Respiratory: normal respiratory effort, lungs clear to auscultation no respiratory distress Cardiovascular: RRR, no murmur, no edema Gastrointestinal (Abdomen): Inspection/Auscultation: abdomen normal to inspection and + hypoactive bowel sounds; abdomen not distended Percussion/Palpation: + abdomen tender (RUQ & epigastric region) and abdomen soft; no guarding and abdomen not rigid Musculoskeletal: no cyanosis or clubbing, extremities motor strength 5/5 Skin: no rashes, warm and dry Neurologic: moves all extremities and awake Psychiatric: Orientation: alert, oriented to person and cooperative Results & Data Results & Data ([facility]) Vital Signs (Past 12 Hours) Vital Signs Temp Pulse Pulse Pulse Resp BP Pulse Ox 09/27/20 20:00 36.4 C L 80 18 135/83 99 09/27/20 18:08 80 18 112/68 97 09/27/20 17:08 79 18 113/64 97 09/27/20 16:38 74 20 119/78 95 09/27/20 16:08 37 C 88 16 118/62 98 09/27/20 15:55 75 16 123/68 99 09/27/20 15:45 36.5 C 69 16 109/53 L 99 09/27/20 15:35 60 18 126/67 99 09/27/20 15:25 69 18 112/65 100 09/27/20 15:16 36.4 C L 84 18 116/62 100 09/27/20 12:30 36.8 C 76 18 116/79 99 PG Care Time/CCT Total # of Minutes Spent Total Time Spent with Patient: Total time spent is greater than 50% in coordination of care (as documented) at patient's floor/unit and/or counseling patient: Coding Level of Care Code 72113 Subseq Hosp Care Lvl 3 Diagnoses Biliary colic K80.50 Depression F32.9 DVT prophylaxis Z29.9 Time Spent (min) 35 Comment First encounter with patient.
[2020-09-28] MEDS: ceFAZolin 1000MG 1,000 MG/7.5 ML SYR IV SCH ×2 (04:30→11:57)
[2020-09-28] MEDS: HYDROmorphone INJ 0.5 MG/0.5 ML SYR IV PRN ×4 (04:30→21:35)
[2020-09-28 05:59] LABS: Basophils # (auto) 0.01 K/uL (0-0.2); Basophils % (auto) 0.1 %; Hemoglobin 10.2 g/dL (12.0-16.0); Immature Granulocytes # (auto) 0.01 K/uL (0.00-0.02); Immature Granulocytes % (auto) 0.1 %; Lymphocytes # (auto) 1.53 K/uL (1.2-3.4); Lymphocytes % (auto) 18.4 %; Mean Corpuscular Hemoglobin 26.3 pg (25-34); Mean Corpuscular Hgb Conc 32.9 g/dL (32-36); Mean Corpuscular Volume 79.9 fL (80-100); Mean Platelet Volume 8.6 fL (7.4-10.4); Monocytes # (auto) 0.51 K/uL (0.11-0.59); Monocytes % (auto) 6.1 %; Neutrophils # (auto) 6.24 K/uL (1.4-6.5); Neutrophils % (auto) 75.3 %; Platelet Count 274 K/uL (130-400); RDW Coefficient of Variation 14.6 % (11.5-14.5); RDW Standard Deviation 42.5 fL (36.4-46.3); Red Blood Count 3.88 M/uL (4.2-5.4)
[2020-09-28 06:25] LABS: Albumin Level 3.1 gm/dl (3.4-5.0); BUN Creatinine Ratio 7.2 (10-20); Calcium 8.6 mg/dl (8.5-10.1); Creatinine Clr Calc Pharmacy 116.2 ml/min; Est GFR (African American) 111.9; Est GFR (Non-African American) 96.6; Potassium 3.7 mmol/L (3.5-5.1)
[2020-09-28 06:28] LABS: Albumin Globulin Ratio 0.9 (0.9-2); Bilirubin,Total 0.4 mg/dl (0.2-1); Globulin 3.6 gm/dl (2.5-4.0); Total Protein 6.7 gm/dl (6.4-8.2)
[2020-09-28] MEDS: FAMOTIDINE 20 MG TAB PO SCH ×2 (08:51→19:27)
[2020-09-28] MEDS: CYANOCOBALAMIN 500 MCG TABLET (VITAMIN B-12) PO SCH (08:52)
[2020-09-28] MEDS: lamoTRIgine 100 MG TAB PO SCH (08:53)
[2020-09-28] MEDS: buPROPion SR 100 MG TABCR PO SCH (08:53)
[2020-09-28] MEDS: estradioL 1 MG TAB PO SCH (08:53)
[2020-09-28] MEDS: LACTATED RINGER'S 1,000 ML IV SCH (09:19)
[2020-09-28] MEDS: ACETAMINOPHEN 325 MG TAB PO PRN ×4 (09:21→21:13)
[2020-09-28] MEDS ORDERED: bisacodyL 10 MG SUPP PR STA (12:53)
--- NOTE | 2020-09-28 12:53 | Surgery Progress Note ---
Date of Service POD 1 doing fine, no fever, tolerated clear diet, no nausea, no vomiting, September 28, 2020 Assessment & Plan (1) Acute cholecystitis due to biliary calculus: pt is a 20 year-old female who was admitted to hospital with acute RUQ pain, IMP: acute cholecystitis, cholelithiasis, plan, I recommend to do laparoscopic cholecystectomy possible open or cholangiogram tomorrow, D/W benefits, risks and alternatives of the surgery, the risks - infection, bleeding, injury CBD, pt understood, she agrees with the surgery, I answered all questions, NPO after MN, 09/28/2020, 12:50PM S/P lap campos, POD 1 doing fine, regular diet, OOD pt can be discharged home today or tomorrow, keep the dressing on for 4 days, she can take a shower on 10/02/2020, no heavy lifting > 20 LBS for 4 weeks, F/U me 2 week, sign off today, please call with questions, Admission and Anticipated Discharge Date Admission Date: September 26, 2020 Review of Systems Constitutional: as per Subjective / HPI Eyes: as per Subjective / HPI Ear, Nose, Mouth, Throat: as per Subjective / HPI Respiratory: as per Subjective / HPI Cardiovascular: as per Subjective / HPI Gastrointestinal: as per Subjective / HPI Genitourinary: as per Subjective / HPI Musculoskeletal: as per Subjective / HPI Integumentary: as per Subjective / HPI Neurologic: as per Subjective / HPI Psychiatric: as per Subjective / HPI depression Physical Exam Constitutional: WD/WN, vitals as above well developed and well nourished Eyes: PERRL, conjunctivae normal, anicteric sclerae ENMT: external ear and nose normal, oropharynx normal Neck: trachea midline, no thyromegaly Respiratory: normal respiratory effort, lungs clear to auscultation Cardiovascular: RRR, no murmur, no edema Rate/Rhythm: regular rate and regular rhythm Gastrointestinal (Abdomen): Percussion/Palpation: + abdomen tender (mild tenderbness at incision site, all incisions intact, BS +) and abdomen soft Musculoskeletal: no cyanosis or clubbing, extremities motor strength 5/5 Skin: no rashes, warm and dry Neurologic: awake Psychiatric: Orientation: alert and oriented x 3 Results & Data ([facility]) Vital Signs (Past 12 Hours) Vital Signs Temp Pulse Resp BP Pulse Ox 09/28/20 12:10 36.7 C 74 16 127/74 09/28/20 08:15 37.1 C 76 16 129/78 09/28/20 04:30 36.6 C 93 H 18 119/76 97 Laboratory Results Abnormal lab results 09/28/20 09/28/20 Range/Units 05:23 05:23 RBC 3.88 L (4.2-5.4) M/uL Hgb 10.2 L (12.0-16.0) g/dL Hct 31.0 L (37-47) % MCV 79.9 L (80-100) fL RDW Coeff of Chuck 14.6 H (11.5-14.5) % BUN 6 L (7-18) mg/dl BUN/Creatinine Ratio 7.2 L (10-20) AST 10 L (15-37) U/L Albumin 3.1 L (3.4-5.0) gm/dl
[2020-09-28] MEDS ORDERED: bisacodyL 5 MG TABEC PO ONE (13:44)
[2020-09-28] MEDS: risperiDONE 0.5 MG TABLET PO SCH (21:10)
--- NOTE | 2020-09-28 22:41 | Hospitalist Progress Note ---
Date of Service September 28, 2020 Assessment & Plan (1) Biliary colic: CT and RUQ u/s both show distended gallbladder containing sludge and tiny calculi. Exam consistent with cholecystitis. - Pain control - HIDA scan ordered - General surgery consulted -S/P cholecsytectomy. will continue to monitor for another day, likely dc in AM. - Defer abx at this point given no leukocytosis, no fevers, no sign of active infection. will try to taper her off opiates. (2) Depression: No present symptoms of concern. - Continue home bupropion, lamotrigine, and risperidone (3) DVT prophylaxis: SCDs - Low DVT risk per admission calculator Admission and Anticipated Discharge Date Admission Date: September 26, 2020 Subjective 20 yo female reports feeling a little better today. She continues to have abdominal pain but it is milder than yesterday. Review of Systems 2 Review of Systems: All systems reviewed & are unremarkable except as noted in HPI & below Physical Exam Physical Exam: Constitutional: WD/WN, vitals as above Eyes: EOM intact bilaterally; no conjunctival abnormality ENMT: external ear and nose normal, oropharynx normal Neck: trachea midline, no thyromegaly normal visual inspection Respiratory: normal respiratory effort, lungs clear to auscultation no respiratory distress Cardiovascular: RRR, no murmur, no edema Gastrointestinal (Abdomen): Inspection/Auscultation: abdomen normal to inspection and + hypoactive bowel sounds; abdomen not distended Percussion/Palpation: + abdomen tender (RUQ & epigastric region) and abdomen soft; no guarding and abdomen not rigid Musculoskeletal: no cyanosis or clubbing, extremities motor strength 5/5 Skin: no rashes, warm and dry Neurologic: moves all extremities and awake Psychiatric: Orientation: alert, oriented to person and cooperative Results & Data Results & Data ([facility]) Vital Signs (Past 12 Hours) Vital Signs Temp Pulse Resp BP Pulse Ox 09/28/20 19:25 37 C 82 18 125/77 99 09/28/20 15:15 37.4 C 83 16 131/78 09/28/20 12:10 36.7 C 74 16 127/74 PG Care Time/CCT Total # of Minutes Spent Total Time Spent with Patient: Total time spent is greater than 50% in coordination of care (as documented) at patient's floor/unit and/or counseling patient: Coding Level of Care Code 54482 Subseq Hosp Care Lvl 2 Diagnoses Biliary colic K80.50 Depression F32.9 DVT prophylaxis Z29.9 Time Spent (min) 25
[2020-09-29] MEDS: HYDROmorphone INJ 0.5 MG/0.5 ML SYR IV PRN (02:25)
[2020-09-29 06:39] LABS: Hematocrit (blood only) 32.3 % (37-47); Hemoglobin 10.4 g/dL (12.0-16.0); Mean Corpuscular Hemoglobin 26.3 pg (25-34); Mean Corpuscular Hgb Conc 32.2 g/dL (32-36); Mean Corpuscular Volume 81.6 fL (80-100); Mean Platelet Volume 8.6 fL (7.4-10.4); Platelet Count 279 K/uL (130-400); RDW Coefficient of Variation 15.1 % (11.5-14.5); RDW Standard Deviation 44.5 fL (36.4-46.3); Red Blood Count 3.96 M/uL (4.2-5.4); White Blood Count 4.96 K/uL (4.8-10.8)
[2020-09-29 07:15] LABS: BUN Creatinine Ratio 8.2 (10-20); Calcium 8.2 mg/dl (8.5-10.1); Creatinine Clr Calc Pharmacy 116.2 ml/min; Est GFR (African American) 111.9; Est GFR (Non-African American) 96.6; Potassium 3.6 mmol/L (3.5-5.1)
[2020-09-29] MEDS: ACETAMINOPHEN 325 MG TAB PO SCH ×2 (08:11→12:46)
[2020-09-29] MEDS: buPROPion SR 100 MG TABCR PO SCH (08:12)
[2020-09-29] MEDS: CYANOCOBALAMIN 500 MCG TABLET (VITAMIN B-12) PO SCH (08:12)
[2020-09-29] MEDS: lamoTRIgine 100 MG TAB PO SCH (08:13)
[2020-09-29] MEDS: FAMOTIDINE 20 MG TAB PO SCH (08:14)
[2020-09-29] MEDS: estradioL 1 MG TAB PO SCH (08:14)
[2020-09-29] MEDS ORDERED: CeleBREX 200 MG CAP PO SCH (11:45)
--- NOTE | 2020-10-07 22:53 | Discharge Summary ---
Date of Service September 29, 2020 Admission HPI Per Admitting Provider 20yo F w/ hx of depression who presents with gallbladder pain. She reports she has had the pain for about 3 years. Initially, it was quite mild and only occurred every other month or so, but over the years has gradually worsened and is now happening twice a week. She reports the pain as a sharp pain in the epigastric region with radiation to the RUQ. It will occur and be constant and last for hours, then fade away. She had an EGD at [facility] recently which found some gastritis for which she was put on famotidine. At 3am this morning, she was woken up by 10/10 pain in the epigastric area again. It was accompanied by nausea, faintness, dizziness. She denies any diarrhea, fevers/chills/sweats, shortness of breath, chest pain, weakness, or any urinary symptoms. She reports the pain was 10/10 and constant until she received fentanyl in the ED. Principal Diagnosis cholecystitis Discharge Exam Constitutional: WD/WN, vitals as above Eyes: EOM intact bilaterally; no conjunctival abnormality ENMT: external ear and nose normal, oropharynx normal Neck: trachea midline, no thyromegaly normal visual inspection Respiratory: normal respiratory effort, lungs clear to auscultation no respiratory distress Cardiovascular: RRR, no murmur, no edema Gastrointestinal (Abdomen): Inspection/Auscultation: abdomen normal to inspection and + hypoactive bowel sounds; abdomen not distended Percussion/Palpation: + abdomen decreased tenderness (RUQ & epigastric region) and abdomen soft; no guarding and abdomen not rigid Musculoskeletal: no cyanosis or clubbing, extremities motor strength 5/5 Skin: no rashes, warm and dry Neurologic: moves all extremities and awake Psychiatric: Orientation: alert, oriented to person and cooperative Discharge Data Allergies Allergy/AdvReac Type Severity Reaction Status Date / Time No Known Allergies Allergy Unverified 09/26/20 06:21 Consultations 09/26/20 09:28 ED Decision to Admit Stat 09/26/20 10:08 Consult General Surgery Routine Procedures Performed Operation Date: 09/27/20 09:30 Actual Procedures p Laparoscopic Cholecystectomy(Not Applicable) - Beni Mariscal MD Ordered Studies 09/26/20 06:46 CT abd pelvis IV con only Stat US gallbladder Stat Hospital Course (1) Biliary colic: CT and RUQ u/s both show distended gallbladder containing sludge and tiny calculi. Exam consistent with cholecystitis. - Pain control - HIDA scan ordered - General surgery consulted -S/P cholecsytectomy. examined by Gen surgery who states she is ready for discharge. - Defer abx at this point given no leukocytosis, no fevers, no sign of active infection. -taper her of opiate, will have her on NSAID and tylenol.. (2) Depression: No present symptoms of concern. - Continue home bupropion, lamotrigine, and risperidone (3) DVT prophylaxis: SCDs - Low DVT risk per admission calculator Total Time Total Time Spent Total Time Spent (In Minutes): 31 Total Time Includes: Examination of the Patient, Discharge Planning and Medication Reconciliation Discharge Plan Discharge Items Patient Disposition: Home - Self-Care Reason For Visit: ACUTE CHOLECYSTITIS Discharge Diagnosis: Acute cholecystitis Activity: Resume your previous activity Non-emergency contact: Primary Care Provider Call non-emergency contact if: you have any medication questions Follow-up/Referrals: Beni Mariscal MD [Physician] - (f/u in 2 weeks with [phone] May remove dressing Thursday shower 10/02/2020 No heavy lifting greater than 20lbs for 4 weeks) PCP,NO [Primary Care Provider] - Diet: Regular Addtl Attending Provider Instructions: You have been hospitalized for an acute medical problem. During your stay at [facility], we have made an effort to correct the problem that brought you to the hospital while keeping you as comfortable as possible. Medications were used to bring your condition under control and your discharge instructions will include directions for any medications you should take after leaving the hospital. Please make sure you see your Primary Care Provider as part of your follow up plan. Pending Studies at Discharge: No Stand-Alone Forms: [facility] C[facility] Medications and DC Order Prescriptions: New acetaminophen 325 mg Tablet 650 mg PO Q8H PRN (Reason: Abdominal Pain) Qty: 30 RF: 0 celecoxib [Celebrex] 200 mg Capsule 200 mg PO BID Qty: 10 RF: 0 tramadol 50 mg tablet 50 mg PO Q8H PRN (Reason: severe pain) Qty: 10 RF: 0 Continued lamotrigine 200 mg tablet 200 mg PO DAILY RF: 0 cyanocobalamin (vitamin B-12) [Vitamin B-12] 250 mcg tablet 250 mcg PO DAILY RF: 0 bupropion HCl 100 mg tablet sustained-release 12 hr 100 mg PO DAILY RF: 0 famotidine 20 mg tablet 20 mg PO BID RF: 0 estradiol 1 mg tablet 1 mg PO DAILY RF: 0 ergocalciferol (vitamin D2) [Vitamin D2] 1,250 mcg (50,000 unit) capsule 50,000 unit PO WK RF: 0 risperidone 0.5 mg tablet 0.5 mg PO HS RF: 0 Discharge Orders: Discharge Order (Routine); Ordered 09/29/20 Ordered By: Tyrell Pandya/Other Patient Handouts: DVT Post Op Prevention, Cholecystectomy Laparoscopic Dc Admission Data Admit Date/Time: 09/26/20 10:23 Attending Provider: Tyrell Pinto Admit Provider: Brent Chacon Primary Care Provider: PCP,NO Other Providers: Brent Chacon ; Beni Mariscal Other Interventions: Discharge Summary Assessment (RN) Last Done: 09/29/20 12:09 Coding Level of Care Code D/C Day Management >30 mins Diagnoses Biliary colic K80.50 Depression F32.9 DVT prophylaxis Z29.9
== END 2020-09-29 13:15 | disposition home or self-care (01) | DRG 419 ==
LOC: ED 05:52 → 4N 10:23 → SUATTDRO 10:23 → 4N 12:20